=== PATIENT | female | born 1985 | race Caucasian/White ===

== ENCOUNTER → 2020-01-23 | Outpatient (CLI) | payer OTHER ==
--- NOTE | 2020-01-23 11:23 | US ---
EXAMINATION TYPE: Transabdominal DATE OF EXAM: 01/23/2020 10:53 AM COMPARISON: NONE CLINICAL HISTORY: O46.91 BLEEDING,SPOTTING. EXAM PERFORMED: Transvaginal (TV) and Transabdominal (TA) EXAM MEASUREMENTS: GESTATIONAL AGE / DATING Physician Established: Not yet established ( Dates by LMP: (10 weeks/5 days) EDC: 08/15/2020 Dates by First Scan: No previous this is first scan ( Dates by Current Scan for: (7 weeks/1 days) EDC: demise MATERNAL ANATOMY Uterus: 9.4 x 5.5 x 7.7 cm Right Ovary: 3.7 x 2.8 x 2.3 cm Left Ovary: 3.1 x 2.1 x 1.9 cm Post CDS / Adnexa: wnl Presence of free fluid: No Presence of corpus luteal cyst: Yes, right ovary measuring 2.1 x 1.7 x 1.5 cm Presence of subchorionic bleed: No GESTATION / SURVEY CRL: 9.8 mm (7 weeks/1 days) IUP: Demise Date of LMP: 11/09/2019 Beta HcG (if available): Not available at this time demise measuring 7 weeks/1 day. No heart tones were seen and B-mode and no flow is identified o n color analysis. Preliminary results called to Gloria at office at time of exam. IMPRESSION: Failed early / demise. No heart tones visible on B-mode and no flow o n color analysis.
== END | disposition home or self-care (01) ==
LOC: RADUSWWP 10:17
PROVIDERS: ATTEND Obstetrics & Gynecology
DX: O46.91 Antepartum hemorrhage, unspecified, first trimester (principal); O20.0 Threatened abortion
CPT/HCPCS: 76801; 76817; 84702

== ENCOUNTER → 2020-07-05 | Outpatient (CLI) | payer OTHER ==
[2020-07-05 14:40] LABS: HCT 37.5 % (34.0-46.0); HGB 12.6 gm/dL (11.4-16.0); MCH 30.2 pg (25.0-35.0); MCHC 33.6 g/dL (31.0-37.0); Mean Platelet Volume 7.6; Platelet Count 288 k/uL (150-450); RBC 4.16 m/uL (3.80-5.40); RDW 12.9 % (11.5-15.5); WBC 9.1 k/uL (3.8-10.6)
[2020-07-05 20:03] LABS: HIV 2 AB Non-Reactive (Non-Reactive); HIV AB P24 Non-Reactive (Non-Reactive); HIV P24 AG Non-Reactive (Non-Reactive)
[2020-07-05 21:56] LABS: Hepatitis B Surface Antigen Non-Reactive (Non-Reactive)
== END | disposition home or self-care (01) ==
LOC: LABWHC1 11:39
PROVIDERS: ATTEND Obstetrics & Gynecology
DX: Z34.81 Encounter for supervision of other normal pregnancy, first trimester (principal); Z3A.00 Weeks of gestation of pregnancy not specified
CPT/HCPCS: 36415; 85027; 86762; 86780; 86850; 86900; 86901; 87340; 87390

== ENCOUNTER 2021-01-15 00:17 | Inpatient (IN) | payer OTHER ==
[2021-01-15] MEDS ORDERED: TERBUTALINE 1 MG/ML VIAL SQ PRN (00:39)
[2021-01-15] MEDS ORDERED: OXYTOCIN 10 UNIT/ML 1 ML VIAL IM PRN (00:39)
[2021-01-15] MEDS ORDERED: CARBOPROST TROMETHAMINE 250 MCG/ML 1 ML AMP IM PRN (00:39)
[2021-01-15] MEDS ORDERED: METHYLERGONOVINE 0.2 MG/ML 1 ML AMP IM PRN (00:39)
[2021-01-15] MEDS ORDERED: LIDOCAINE 0.5% (PF) 5 MG/ML (50 ML SDV) SQ PRN (00:39)
--- NOTE | 2021-01-15 01:01 | P.HPOB ---
History of Present Illness H&P Date: 01/15/21 Chief Complaint: Strong regular uterine contractions This is a 35-year-old white female 5 para [id number] EDC 01/23/2021 at 38-6/7 weeks' gestation. Patient presents with strong regular uterine contractions from home. Fetus is been active throughout the . She denies vaginal bleeding or fluid leakage. Past medical history is significant for scoliosis. Past surgical history suction D&C for missed AB, wisdom teeth extracted. Current medications vitamins daily. ALLERGIES none known. Family history significant for tetralogy of the low history significant for normal spontaneous vaginal delivery 8 lbs. 6 oz. in 2015. Social history patient is , she is a salon receptionist for local medical practice, she denies alcohol tobacco or drug use. history blood type is A+, rubella status immune. VDRL testing, urine culture, hepatitis B surface antigen, HIV testing, Pap smear, gonorrhea and chlamydia cultures, group B strep cultures all negative. One-hour Glucola 118. On exam patient is 5 foot 10 inches, 177 pounds, vital signs are stable and she is afebrile. General physical exam is within normal limits. Extremities reveal no edema. Cervix is 9 cm dilated, 90% effaced, -1 station, vertex presentation. Artificial amniorrhexis reveals clear fluid. heart rate is consistent with reactive NST. Impression: 38-6/7 weeks intrauterine , active spontaneous labor, all signs reassuring. Plan: Close maternal and surveillance. Anticipate normal spontaneous vaginal delivery. Review of Systems Constitutional: Reports as per HPI Past Medical History History of Any Multi-Drug Resistant Organisms: None Reported Additional Past Surgical History / Comment(s): moellar Past Psychological History: No Psychological Hx Reported Past Drug Use History: None Reported Medications and Allergies Home Medications Medication Instructions Recorded Confirmed Type Pnv,Calcium 72/Iron/Folic Acid 1 tab PO DAILY 01/23/15 01/15/21 History [Pnv Plus Multivit Tab] Allergies Allergy/AdvReac Type Severity Reaction Status Date / Time No Known Allergies Allergy Verified 01/23/15 03:29 Exam Intake and Output 01/14/21 01/14/21 01/15/21 14:59 22:59 06:59 Other: Weight 80.286 kg see dictation please Assessment and Plan Assessment: 39-6/7 weeks intrauterine , active spontaneous labor. All signs reassuring. Plan: Close maternal and surveillance. Anticipate normal spontaneous vaginal delivery. Time with Patient: Less than 30
[2021-01-15] MEDS: LACTATED RINGERS 1,000 ML IV SCH ×2 (01:05→20:01)
[2021-01-15 01:28] LABS: Basophils % (A) 0 %; Eosinophils # (A) 0.1 k/uL (0-0.7); Eosinophils % (A) 1 %; HCT 34.3 % (34.0-46.0); HGB 11.7 gm/dL (11.4-16.0); Lymphocytes # (A) 1.8 k/uL (1.0-4.8); Lymphocytes % (A) 15 %; MCH 31.6 pg (25.0-35.0); MCHC 34.2 g/dL (31.0-37.0); MCV 92.3 fL (80.0-100.0); Mean Platelet Volume 7.3; Monocytes # (A) 0.6 k/uL (0-1.0); Monocytes % (A) 5 %; Neutrophils # (A) 9.3 k/uL (1.3-7.7); Neutrophils % (A) 78 %; Platelet Count 359 k/uL (150-450); RBC 3.72 m/uL (3.80-5.40); RDW 13.4 % (11.5-15.5); WBC 11.9 k/uL (3.8-10.6)
[2021-01-15] MEDS ORDERED: OXYTOCIN 30 UNITS/500 ML NS 30 UNIT in SALINE 1 500ML.BAG IV SCH (01:45)
[2021-01-15] MEDS ORDERED: diphenhydrAMINE ELIXIR 25 MG/10 ML CUP PO PRN (02:44)
[2021-01-15] MEDS ORDERED: diphenhydrAMINE 50 MG CAP PO PRN (02:44)
[2021-01-15] MEDS ORDERED: diphenhydrAMINE 25 MG CAP PO PRN (02:44)
[2021-01-15] MEDS ORDERED: BENZOCAINE/MENTHOL SPRAY 1 GM/SPRAY AEROSOL TOPICAL PRN (02:44)
[2021-01-15] MEDS ORDERED: SIMETHICONE 80 MG CHEWABLE PO PRN (02:44)
[2021-01-15] MEDS ORDERED: ZOLPIDEM 5 MG TAB PO PRN (02:44)
[2021-01-15] MEDS ORDERED: HYDROCORTISONE 2.5% RECTAL CREAM 30 GM TUBE RECTAL PRN (02:44)
[2021-01-15] MEDS ORDERED: ACETAMINOPHEN TAB 325 MG TAB PO PRN (02:44)
[2021-01-15] MEDS ORDERED: LANOLIN CREAM 5 GM TUBE TOPICAL PRN (02:44)
[2021-01-15] MEDS ORDERED: diphenhydrAMINE 50 MG/ML 1 ML VIAL IVP PRN ×2 (02:44)
--- NOTE | 2021-01-15 02:44 | P.PROBDLV ---
Vaginal Delivery Note - . Vaginal Delivery Note: This is a 35 rolled white female 5 para 1031 EDC 01/23/2021 at 38-6/7 weeks' gestation. Patient presented with spontaneous strong uterine contractions from home. Fetus is been active throughout the . She denied vaginal bleeding or fluid leakage. Group B strep cultures negative. Rubella status immune. Blood type B positive. Please see dictated history and physical for details. Artificial amniorrhexis revealed clear fluid. Oxytocin augmentation was starte very briefly. Patient became completely dilated at 0225 hours and began the second stage of labor at that time. Perineal body was prepped and draped in usual sterile fashion. 's head delivered occiput anterior and restituted accordingly. There was a nuchal cord 1 that was reduced on the perineal body. The left or anterior shoulder was gently and easily delivered from underneath the pubic symphysis. The patient officially delivered a liveborn female with scores of 9 and 9 at one and 5 minutes respectively. Umbilical cord was doubly clamped and ligated, she was handed to waiting nurses for evaluation where scores of 9 and 9 at one and 5 minutes respectively were given. The placenta delivered spontaneously, it was inspected and noted to be intact with trivascular cord. Uterus is then massaged. Careful inspection of the cervix, vagina, perineum, periurethral, and perirectal areas revealed a small second-degree midline perineal laceration. This was injected with 1% lidocaine and repaired in the usual fashion using 3-0 Rapide suture. All sponge needle and enhancement counts are correct at the end of the procedure. weighed 4005 g or 8 lbs. 13 oz. Patient and her family were allowed to begin the bonding experience in the LDR. Complications: None
[2021-01-15] MEDS: IBUPROFEN 600 MG TAB PO SCH ×3 (03:00→21:40)
[2021-01-15] MEDS: SENNOSIDES-DOCUSATE SODIUM 1 EACH TAB PO SCH ×2 (18:58→20:01)
[2021-01-16] MEDS: IBUPROFEN 600 MG TAB PO SCH ×2 (02:50→08:51)
[2021-01-16 08:51] VITALS: BP 124/78; PULSE 70; RESP 14; TEMP 98
[2021-01-16] MEDS: SENNOSIDES-DOCUSATE SODIUM 1 EACH TAB PO SCH (08:51)
--- NOTE | 2021-01-16 09:16 | P.DS ---
Providers Date of admission: 01/15/21 00:32 Expected date of discharge: 01/16/21 Attending physician: Angy Santo Primary care physician: Stated None Hospital Course: This is a 35-year-old white female 5 para 1031 EDC 01/23/2021 at 38-6/7 weeks' gestation who presented from home with spontaneous active labor. remarkable for blood type A positive, rubella status immune, group B strep cultures negative. Please see dictated history and physical for details. Patient went on to spontaneous deliver vaginally a liveborn female infant with scores of 9 and 9 at one and 5 minutes respectively. weighed 8 lbs. 13 oz. or 4005 g. With a small second-degree perineal laceration easily repaired. There was a nuchal cord 1. Please see my dictated delivery note for details. This morning the patient is doing well. She is voiding, ambulating, passing flatus without difficulty. Vital signs are stable and she is afebrile. Fundus is firm and in the midline, symmetric and 18 week size. Extremities reveal no edema. Chest is clear in all lott. Patient is being discharged home in very good condition. She will follow-up with her primary key account manager in the office in 6 weeks. I have reminded her no intercourse, tampons or douching. She will use [id number] Advil or Aleve, or Motrin as needed for pain. Carmichael will follow-up in the office as recommended. She will call with any fevers shakes or chills, foul smelling or copious lochia, with the passage of large blood clots, or with any pain not alleviated by [id number] Advil or Aleve, or Motrin products. Assessment: Doing well Patient Condition at Discharge: Good Plan - Discharge Summary Discharge Rx Participant: No New Discharge Prescriptions: No Action Pnv,Calcium 72/Iron/Folic Acid [Pnv Plus Multivit Tab] 1 tab PO DAILY Discharge Medication List Pnv,Calcium 72/Iron/Folic Acid [Pnv Plus Multivit Tab] 1 tab PO DAILY 01/23/15 [History] Follow up Appointment(s)/Referral(s): Angy Santo MD [STAFF PHYSICIAN] - 6 Weeks Discharge Disposition: HOME SELF-CARE
== END 2021-01-16 11:29 | disposition home or self-care (01) | DRG 807 ==
LOC: FBPOP 00:17 → 4FBP 00:32
PROVIDERS: ADMIT Obstetrics & Gynecology; ATTEND Obstetrics & Gynecology
PROC: 10E0XZZ Delivery of Products of Conception, External Approach (ICD-10-PCS; principal; 2021-01-15)
PROC: 0KQM0ZZ Repair Perineum Muscle, Open Approach (ICD-10-PCS; 2021-01-15)
PROC: 10907ZC Drainage of Amniotic Fluid, Therapeutic from Products of Conception, Via Natural or Artificial Opening (ICD-10-PCS; 2021-01-15)
DX: O69.81X0 Labor and delivery complicated by cord around neck, without compression, not applicable or unspecified (principal); Z37.0 Single live birth; Z3A.38 38 weeks gestation of pregnancy; O70.1 Second degree perineal laceration during delivery; M41.9 Scoliosis, unspecified; Z79.899 Other long term (current) drug therapy; Z87.59 Personal history of other complications of pregnancy, childbirth and the puerperium; Z82.49 Family history of ischemic heart disease and other diseases of the circulatory system
CPT/HCPCS: 85025; 86850; 86900; 86901